=== PATIENT | female | born 1975 | race Caucasian/White ===

== ENCOUNTER 2017-07-15 09:52 | Inpatient (IN) ==
[2017-07-15] MEDS ORDERED: ASPIRIN PO STA (10:37)
[2017-07-15 10:51] LABS: MANUAL DIFF NEEDED? NO
[2017-07-15 10:54] LABS: BASO% 0.4 % (0.0-0.8); EOS# 0.27 X1000 (0.0-0.7); EOS% 3.8 % (0.0-10.0); HEMATOCRIT 46.3 % (37.0-47.0); HEMOGLOBIN 15.9 g/dL (12.0-16.0); IMM GRAN# 0.01 X1000 (0.0-0.04); IMM GRAN% 0.1 % (0.0-0.5); LYMPH# 2.21 X1000 (1.2-3.4); MCH 30.5 PG (27-31); MCHC 34.3 g/dL (33-37); MCV 88.7 FL (81-99); MONO# 0.49 X1000 (0.11-0.59); MONO% 6.9 % (1.7-9.3); MPV 12.3 FL (7.4-10.4); NEUT% 57.8 % (42.2-75.2); PLT 156 X1000 (130-400); RBC 5.22 XMIL (4.2-5.4)
[2017-07-15 11:10] LABS: INR 0.99 (0.86-1.15); PROTIME 13.9 Seconds (12.1-15.5)
[2017-07-15 11:11] LABS: PTT PL 24.3 Seconds (22.6-43.9)
[2017-07-15 11:18] LABS: AGAP 10; ALBUMIN 4.4 g/dL (3.5-5.0); ALKALINE PHOSPHATASE 63 U/L (32-104); BUN 8 mg/dL (8-22); CALCIUM 9.6 mg/dL (8.8-10.2); CHLORIDE 103 mmol/L (98-107); CK PROFILE 107 U/L (24-173); COSMO 280; GOT 39 U/L (10-30); GPT 62 U/L (10-36); MAGNESIUM 2.1 mg/dL (1.5-2.7); POTASSIUM 4.3 mmol/L (3.5-5.1); SODIUM 141 mmol/L (136-145); TCO2 27 mmol/L (25-35); TOTAL PROTEIN 7.6 g/dL (6.3-8.3)
[2017-07-15] MEDS ORDERED: ZOFRAN IV PRN (14:27)
[2017-07-15] MEDS ORDERED: MORPHINE IV PRN (14:33)
[2017-07-15] MEDS: LOVENOX SUBQ SCH (16:50)
[2017-07-15] MEDS: TYLENOL PO PRN (19:51)
[2017-07-16 05:31] LABS: MANUAL DIFF NEEDED? NO
[2017-07-16 05:37] LABS: BASO% 0.3 % (0.0-0.8); EOS% 4.3 % (0.0-10.0); HEMATOCRIT 41.5 % (37.0-47.0); IMM GRAN# 0.04 X1000 (0.0-0.04); IMM GRAN% 0.6 % (0.0-0.5); LYMPH# 2.51 X1000 (1.2-3.4); LYMPH% 36.2 % (20.5-51.1); MCH 30.3 PG (27-31); MCHC 33.7 g/dL (33-37); MCV 89.8 FL (81-99); MONO# 0.62 X1000 (0.11-0.59); MONO% 8.9 % (1.7-9.3); MPV 12.7 FL (7.4-10.4); NEUT% 49.7 % (42.2-75.2); PLT 147 X1000 (130-400); RBC 4.62 XMIL (4.2-5.4)
[2017-07-16 06:05] LABS: AGAP 8; BUN 14 mg/dL (8-22); CALCIUM 8.7 mg/dL (8.8-10.2); CHLORIDE 107 mmol/L (98-107); COSMO 282; POTASSIUM 4.3 mmol/L (3.5-5.1); SODIUM 140 mmol/L (136-145); TCO2 25 mmol/L (25-35)
[2017-07-16] MEDS: TYLENOL PO PRN (09:12)
[2017-07-16] MEDS: LOVENOX SUBQ SCH (15:58)
[2017-07-16] MEDS ORDERED: PRILOSEC PO ONE (16:41)
[2017-07-17] MEDS: PRILOSEC PO SCH (06:03)
[2017-07-17] MEDS: TYLENOL PO PRN (15:33)
[2017-07-17] MEDS: LOVENOX SUBQ SCH (15:33)
[2017-07-17] MEDS: ASPIRIN PO SCH (15:35)
[2017-07-18] MEDS: LOVENOX SUBQ SCH ×2 (02:13→16:02)
[2017-07-18] MEDS: PRILOSEC PO SCH (06:08)
[2017-07-18] MEDS: ASPIRIN PO SCH (08:47)
[2017-07-18] MEDS ORDERED: LIPITOR PO SCH (09:00)
[2017-07-18] MEDS: TYLENOL PO PRN (13:43)
[2017-07-19] MEDS: LOVENOX SUBQ SCH (02:02)
[2017-07-19] MEDS: PRILOSEC PO SCH (06:10)
[2017-07-19 06:20] LABS: MANUAL DIFF NEEDED? NO
[2017-07-19 06:25] LABS: BASO% 0.4 % (0.0-0.8); EOS# 0.35 X1000 (0.0-0.7); HEMATOCRIT 40.8 % (37.0-47.0); HEMOGLOBIN 13.8 g/dL (12.0-16.0); IMM GRAN# 0.05 X1000 (0.0-0.04); IMM GRAN% 0.7 % (0.0-0.5); LYMPH# 2.33 X1000 (1.2-3.4); LYMPH% 33.1 % (20.5-51.1); MCH 30.5 PG (27-31); MCHC 33.8 g/dL (33-37); MCV 90.1 FL (81-99); MONO# 0.68 X1000 (0.11-0.59); MONO% 9.7 % (1.7-9.3); MPV 13.2 FL (7.4-10.4); NEUT% 51.1 % (42.2-75.2); PLT 130 X1000 (130-400); RBC 4.53 XMIL (4.2-5.4)
[2017-07-19 06:57] LABS: AGAP 8; BUN 11 mg/dL (8-22); CALCIUM 8.7 mg/dL (8.8-10.2); CHLORIDE 106 mmol/L (98-107); COSMO 284; SODIUM 141 mmol/L (136-145); TCO2 27 mmol/L (25-35)
[2017-07-19 07:02] LABS: HDL 33 mg/dL (45-65); LDL 99 mg/dL; TRIGLYCERIDES 125 mg/dL (35-135); VLDL 25 mg/dL
[2017-07-19 07:38] VITALS: BP 141/72
[2017-07-19] MEDS ORDERED: LIPITOR PO SCH (21:00)
== END 2017-07-19 08:48 | disposition short-term general hospital (02) ==
LOC: P.ED 09:52 → INTOOBSV 15:41 → SUATTDRO 15:41 → P.MEDSURG 15:41 → OBSVTOIN 15:41
PROVIDERS: ATTEND Family Medicine